=== PATIENT | female | born 1990 | race Caucasian/White ===

== ENCOUNTER 2016-04-14 02:30 | Inpatient (IN) | payer OTHER ==
[~2016-04-14] VITALS: Ht 149.9 cm; Wt 72.7 kg
[~2016-04-14 02:30] MED LIST: CALC600T5 PO; FERR256T PO; PREN-46 PO
[2016-04-14 02:38] VITALS: Ht 149.9 cm; Wt 72.7 kg
[2016-04-14 02:42] VITALS: BP 117/60; PULSE 88; RESP 18
[2016-04-14] MEDS ORDERED: INSU100V3 IJ ×2 (03:10)
[2016-04-14] MEDS ORDERED: NPH SQ (03:10)
[2016-04-14] MEDS ORDERED: NPH,100V SQ (03:10)
[2016-04-14] MEDS ORDERED: LACTATED RINGER'S 500 ML IV ONE (03:30)
[2016-04-14] MEDS: LACTATED RINGER'S 1,000 ML IV SCH ×7 (03:30→22:03)
[2016-04-14 04:13] LABS: ADD UMIC NO; URINE BILIRUBIN (Dip) NEGATIVE (NEGATIVE); URINE BLOOD (Dip) NEGATIVE (NEGATIVE); URINE COLOR YELLOW (YELLOW); URINE KETONES (Dip) 15 (NEGATIVE); URINE LEUKOCYTE ESTERASE (Dip) NEGATIVE (NEGATIVE); URINE NITRITE (Dip) NEGATIVE (NEGATIVE); URINE TOTAL PROTEIN (Dip) NEGATIVE (NEGATIVE); URINE UROBILINOGEN (Dip) 1.0 E.U./dL (0.1-1.0)
[2016-04-14] MEDS ORDERED: MISOPROSTOL 200 MCG TAB PR PRN ×2 (05:30→22:30)
[2016-04-14] MEDS ORDERED: METHYLERGONOVINE 0.2 MG INJ IM PRN ×2 (05:30→22:30)
[2016-04-14] MEDS ORDERED: CARBOPROST 250 MCG INJ IM PRN ×2 (05:30→22:30)
[2016-04-14] MEDS ORDERED: CEFAZOLIN 2 GM/50 ML (PMX) 50 ML IV SCH (05:30)
[2016-04-14] MEDS ORDERED: OXYTOCIN 30 UNITS/LR 500 ML IV PRN ×2 (05:30→22:30)
[2016-04-14 07:51] LABS: INR 0.96; PARTIAL THROMBOPLASTIN TIME 28.9 Sec (25.0-35.0); PROTIME 12.8 Sec (12.2-14.2)
[2016-04-14 07:59] LABS: BASOPHILS % 0.3 % (0.0-2.0); EOSINOPHILS # 0.1 10^3/ul (0.0-0.5); EOSINOPHILS % 0.9 % (0.0-7.0); HEMATOCRIT 36.4 % (37.0-47.0); HEMOGLOBIN 12.1 g/dl (12.0-16.0); LYMPHOCYTES # 1.8 10^3/ul (0.8-2.9); LYMPHOCYTES % 17.9 % (15.0-51.0); MEAN CORPUSCULAR HGB CONC 33.3 g/dl (32.0-37.0); MEAN CORPUSCULAR VOLUME 87.1 fl (82.0-101.0); MEAN PLATELET VOLUME 10.6 fl (7.4-10.4); MONOCYTE # 0.6 10^3/ul (0.3-0.9); MONOCYTES % 6.4 % (0.0-11.0); NEUTROPHIL # 7.4 10^3/ul (1.6-7.5); NEUTROPHILS % 74.5 % (39.0-77.0); PLATELET COUNT 193 10^3/UL (140-440); RED BLOOD COUNT 4.18 10^6/ul (4.20-5.40); RED CELL DISTRIBUTION WIDTH 14.6 % (11.5-14.5); UNCORRECTED WBC 9.9 10^3/ul (4.8-10.8); WHITE BLOOD COUNT 9.9 10^3/ul (4.8-10.8)
[2016-04-14 08:02] LABS: CONDITION 1; LH ANALYZER COMMENTS 1
[2016-04-14] MEDS ORDERED: ONDANSETRON 4 MG INJ ONE ×2 (17:55→18:29)
[2016-04-14] MEDS ORDERED: CITRIC ACID/NA CITRATE 30 ML CUP ONE (17:55)
[2016-04-14] MEDS ORDERED: EPHEDrine SULFATE 50 MG/5 ML SYG ONE (18:41)
[2016-04-14] MEDS ORDERED: morphine SULFATE/PF (10 MG/10 ML) INJ ONE (18:41)
[2016-04-14] MEDS ORDERED: PHENYLephrine (100 MCG/ML) 5ML SYG ONE ×2 (18:42→19:07)
[2016-04-14] MEDS ORDERED: FENTAnyl 50 MCG/ML VIAL ONE (18:54)
[2016-04-14] MEDS ORDERED: ONDANSETRON 4 MG INJ IV STA (19:19)
[2016-04-14] MEDS ORDERED: CITRIC ACID/NA CITRATE 30 ML CUP PO ONE (19:30)
--- NOTE | 2016-04-14 19:32 | HP ---
Date/Time of Note Date/Time of Note DATE: 04/14/16 TIME: 19:27 OB - History Hx of Present Free Text/Dictation admitted in early labor at 38 + weeks Chief Complaint: uterine contractions Last Menstrual Period: Jul 20, 2015 Estimated Due Date: Apr 25, 2016 : 2 Para: 1 Care: Good Care Ultrasounds: Normal mid trimester US Obstetrical Complications: Gestational Diabetes, Other (fatty degeneration of the liver ) Medical Complications: Other (previous C/S x 1) Past Family/Social History * Past Medical, Surgical, Family and Obstetric Histories reviewed from chart. Blood Type: A+ Rubella: immune RPR/VDRL: Negative GBS Status: Negative HBsAG: Negative OB Admission Exam Vital Signs Vital Signs Vital Signs Date Time Temp Pulse Resp B/P Pulse Ox O2 Delivery O2 Flow Rate FiO2 04/14/16 02:42 97.9 88 18 117/60 Room Air Physical Exam HEENT: WNL Heart: Rhythm Normal Lungs: Clear, Equal Abdomen: WNL Extremities: Normal Reflexes: Normal Cervical Dilatation: None Effacement: 0% Station: -3 Membranes: Intact Heart Rate: 150's Accelerations: Accelerations Present Decelerations: No Decelerations Varibility: Moderate Contractions on Admission: 6-10 Minutes Apart Date/Time Contractions Began: 04/14/2016 Frequency of Contractions: q7=9 min Duration: > 60 seconds Intensity: Mild Last 72 hourBlood Glucose Bedside Glucose - 72 Hours Test 04/14/16 07:27 04/14/16 11:30 04/14/16 15:24 Bedside Glucose 101mg/dL (70-220) 89mg/dL (70-220) 81mg/dL (70-220) Last 72 hours Lab Results CBC & BMP 04/14/16 03:35 OB Assessment/Plan Reason for admission: section Other Assessment: 38 + weeks gestation previous C/S x 1 desires sterilization early labor Other plan: repeat C/S + BTL TERESA RAMIREZ MD Apr 14, 2016 19:32
--- NOTE | 2016-04-14 19:35 | OPR ---
Operative Report Planned Procedure Procedure date Apr 14, 2016 Procedure(s) repeat C/S + BTL Performed by: TERESA RAMIREZ MD Assisting provider: LETTY GUTIERREZ MD Anesthesiologist: MARIELOS MATUTE Pre-procedure diagnosis term gestation previous C/S X 1 desires sterilization Anesthesia Type: spinal Procedure Description Under satisfactory anaesthesia a Pfannenstiel incision was made two fingerbreadth above and parallel to the symphysis of pubis around the previous scar and previous scar was removed Incision was extended laterally to the border of the Recti muscles on either sides. Incision was carried down with sharp and blunt dissection until fascia was reached. Anterior Recti muscle fascia was incised in mid portion and incision extended laterally to the border of skin incision. Fascia was mobilized from muscle superiorly and Recti muscles were from midline using sharp and blunt dissection. Peritoneum was visualized; Avoiding bowel and bladder it was incised . Incision was extended superiorly and inferiorly. Bladder blade was placed. Posterior peritoneum covering the lower segment of the uterus and lower segment of the uterus were incised.Low transverse uterine incision was made on lower segment of the uterus. Incision extended laterally to the border of Round Lig. on either sides and baby was delivered from OT. position . Amniotic fluid appeared clear. Cord blood was obtained and cord had 3 vessels . Placenta was delivered spontaneously and appeared intact and complete. Intrauterine cavity was rubbed with a laparotomy sponge. Uterine incision was closed in 2 layers using running stitches of No1 Monocryl. Hemostasis appeared secure. Ovaries and Fallopian tubes were within normal limits. Bilateral Tubal Ligation was performed by following procedure: R fallopian tube was raised in mid portion; 3 cm below the raised area single 0 Plain Gut stitch was placed. Another 0 Plain gut stitch was placed half a centimeter below the first and a knuckle of tube that was formed was incised above the first stitch. Same procedure was done on fallopian tube on the opposite side. Hemostasis appeared to be secure on ligated sites of either fallopian tubes. Announcing needle, lap sponge and instrument count to be correct abdomen was closed in layers as follows: Peritoneum and Recti muscles with running stitches of 20 Vicryl. Fascia with running stitch of No 1 PDS. Subcutaneous tissue with running stitches of 20 Chromic and skin was closed using lori. Patient tolerated the procedure well and was transferred to [facility] in good condition. Post-Procedure Post-procedure diagnosis S/P C/S + BTL Findings: Live Baby Specimen removed: Yes Specimen description segments of R and L fallopian tubes Complications: None Pt Condition post procedure: stable Disposition: PACU Physician Certification I, the undersigned physician, hereby certify that I have discussed the procedure described in this consent form with this patient (or the patient's legal industrial relations representative), including: * The risk and benefits of the procedure; * Any adverse reactions that may reasonably be expected to occur; * Any alternative efficacious methods of treatment which may be medically viable ; * The potential problems that may occur during recuperation; * Potential for blood transfusion and associated risks/benefits; and * Any research or economic interest I may have regarding this treatment. I further certify that the patient/legally responsible person was encouraged to ask question and that all questions were answered. TERESA RAMIREZ MD Apr 14, 2016 19:35
[2016-04-14] MEDS ORDERED: DIPHENHYDRAMINE 50 MG INJ IV PRN ×2 (20:00)
[2016-04-14] MEDS ORDERED: FENTAnyl 50 MCG/ML VIAL IV PRN ×2 (20:00)
[2016-04-14] MEDS ORDERED: NALOXONE (0.4 MG/ML) INJ IV PRN (20:00)
[2016-04-14] MEDS ORDERED: KETOROLAC 15 MG INJ IV ONE (20:00)
[2016-04-14] MEDS ORDERED: ONDANSETRON 4 MG INJ IV PRN ×2 (20:00)
[2016-04-14] MEDS ORDERED: KETOROLAC 30 MG INJ IV ONE (20:00)
[2016-04-14] MEDS ORDERED: MEPERIDINE 25 MG INJ IV PRN (20:00)
[2016-04-14] MEDS ORDERED: OXYCODONE/ACETAMINOPHEN (5/325) TAB PO PRN ×2 (20:00→22:30)
[2016-04-14] MEDS ORDERED: HYDROmorphONE (0.2 MG/ML) 10ML SYG IV PRN ×3 (20:00)
[2016-04-14] MEDS ORDERED: HYDROmorphONE 1 MG/ML SYG IV PRN ×2 (20:00)
[2016-04-14] MEDS: OXYTOCIN 30 UNITS/LR 500 ML IV SCH (21:14)
--- NOTE | 2016-04-14 21:54 | OPRPT ---
Intraop Record Datetime Report Generated by CPN: 04/14/2016 21:54 Datetime: 04/14/2016 21:30 Sequential Compression Device: Yes Datetime: 04/14/2016 21:15 Sequential Compression Device: Yes Datetime: 04/14/2016 21:00 Sequential Compression Device: Yes Datetime: 04/14/2016 20:45 Sequential Compression Device: Yes Datetime: 04/14/2016 20:30 Sequential Compression Device: Yes Datetime: 04/14/2016 20:15 Sequential Compression Device: Yes Datetime: 04/14/2016 20:00 Sequential Compression Device: Yes Datetime: 04/14/2016 19:45 Sequential Compression Device: Yes Datetime: 04/14/2016 19:35 Sequential Compression Device: Yes Datetime: 04/14/2016 11:00 OR Number: 2 TIMES/PROCEDURE Arrive OR: 04/14/2016 17:59 Depart OR: 04/14/2016 19:35 Anesthesia Start: 04/14/2016 17:59 Anesthesia End: 04/14/2016 19:41 Surgery Start: 04/14/2016 18:39 Surgery End: 04/14/2016 19:29 Preoperative Dx: REPEAT SECTION WITH BTL Surgical Procedure: Section with BTL Postoperative Dx: POST SECTION WITH BTL C/S Decision Time: 04/14/2016 10:30 C/S Decision to Incision (min): 489 Uterine Incision: 04/14/2016 18:44 PERSONNEL Surgeon: Chichi Walls Doctor Of Nurse Anesthesia Practice Relief Time: 1914 Scrub: Jordan Fortune Scrub: Grace Scrub Relief Times: 1914 Anesthesia Care Provider: Richard Kwon Care: See Delivery Summary for Care Providers Anesthesia Type: Spinal ASA Level: I RISK FOR INJURY Mode of Arrival: Ambulate Procedure Time Out: Correct Patient Identity; Correct Side and Site are Marked (if applicable); Acc urate Procedure Consent Form; Agreement on Procedure to be Done; Correct Patient Position; Relevant Images and Results are Properly Labeled and Displayed; Addressed Need to Administer Antibiotics or F luids for Irrigation; Safety Precautions Based on Patient History or Medication Use; Allergies Revie wed Preoperative Information: Preoperative Checklist Reviewed; Allergies Reviewed; NPO Status Verified RISK FOR ANXIETY/KNOW DEFICIT Emotional Status: Calm/Relaxed Interventions: Provided Education Based on Age and Identified Needs; Communicated Patient Concerns to Appropriate Members of the Health Care Team; Explained Sequence of Events and Perioperative Routi ne; Evaluated Response to Instructions RISK FOR PAIN Pain Teaching: Instructed on Pain Scale PREOPERATIVE OUTCOMES Preoperative Outcomes: Verbalizes/Indicates Decreased Anxiety, Ability to [place], Understanding of Pr ocedure and Sequence of Events. Questions Answered; Demonstrates Adequate Pain Management; Verbaliz es Comfort Related to Transfer/Transport RISK FOR INFECTION Skin Pre-Operative Site: Intact Clip: Clip Clip Location: CLOSED LOWER ABDOMEN Prep: Yes Prep By: DANIAL BEAR Prep Solution: Povidone Iodine Catheter: Bowman Catheter Size: 16 Catheter Inserted By: DANIAL BEAR Surgical Wound Class: I-Clean Drains : Intact Dressing Type: Transparent Dressing Other Dressing Types: TELFA, ABD, GAUZE, AND PRESSURE TAPE Risk for Impaired Skin Integrity Position in OR: Supine Bony Prominences Protection: Arms Tucked/Padded; Elbows Positioning Devices: Wedge Risk for Hypothermia Warming Interventions: Warm [place](s); Warm Irrigation Risk for Injury Safety Straps Applied: Legs Sequential Compression Device: Yes Electrosurgical Unit: Yes Electrosurgical Unit Number: [id number] Bipolar Number: [id number] Ground Pad Location: Right Lateral Thigh Coag Number: 60 Cut Number: 60 Estimated Blood Loss- OR (ml): 700 1st Count Sponge Count: Correct Needle Count: Correct Blade Count: Correct Instrument Count: Correct 2nd Count Sponge Count: Correct Needle Count: Correct Blade Count: Correct Instrument Count: Not Done 3rd Count Sponge Count: Correct Needle Count: Correct Blade Count: Correct Instrument Count: Not Done Final Count Sponge Count 4: Correct Needle Count 4: Correct Blade Count 4: Correct Instrument Count 4: Correct Surgeon Acknowledged Count: Yes Final Count Resolution: Count Correct Intraoperative Data Equipment: Non-Invasive Blood Pressure; Pulse Oximeter; EKG Blood Products Given: N/A Implants/Prosthesis Implants/Prosthesis: N/A Grafts: N/A Irrigation Irrigants: NACL; LR Irrigation Amount: 2L EACH Specimens Specimens: Yes Specimen Type: Fallopian Tubes Disposition: LEFT Specimen Type: Fallopian Tubes Disposition: RIGHT Cultures Cultures: N/A X-Ray X-Ray Taken: Yes Postoperative Skin: Warm; Dry Pain Scale: 0 Condition: Awake; Alert Temperature: 97.7 Operative Outcomes: Patient's Surgery Performed Using Aseptic Technique and in a Manner to Prevent Cross-Contamination; Skin Remains Smooth, Intact, Non-reddened, Non-irritated, Free of Bruising; Cor e Body Temperature Remains in Expected Range Other Operative Outcomes: GROUNDING PAD SITE REMAINS INTACT Transfer To: L_D Other: RECOVERY ROOM Datetime: 04/14/2016 02:38 Drug Allergies/Reactions: No Known Allergy (04/14/2016) Datetime: 02/07/2016 00:34 Drug Allergies/Reactions: No Known Allergy (05/11/2013) Datetime: 02/04/2016 20:36 Food Allergies/Reactions: NO
--- NOTE | 2016-04-14 21:54 | DELSUM ---
Delivery Summary A-C Datetime Report Generated by CPN: 04/14/2016 21:54 DELIVERY PERSONNEL Loading Checker: Mariann, Otilia MATERNAL INFORMATION Delivery Anesthesia: Spinal Medications in Delivery: SEE ANESTHESIOLIST NOTES Placenta Cultured: No Maternal Complications: Other Other Maternal Complications: REPEAT LABOR SUMMARY EDC: 04/25/2016 00:00 No. Babies in Womb: 1 Attempted: No Labor Anesthesia: None LABOR INFORMATION Reason for Induction: Not Applicable Oxytocin: N/A Group B Beta Strep: Negative Antibiotics # of Doses: ANCEF 2GM Antibiotics Time of Last Dose: 1818 Steroids Given: None Reason Steroids Not Administered: Not Applicable MEMBRANES Membranes Rupture Method: Artificial Rupture of Membranes: 04/14/2016 18:46 Length of Rupture (hr): 0.00 Amniotic Fluid Color: Clear Amniotic Fluid Amount: Moderate Amniotic Fluid Odor: Normal STAGES OF LABOR Stage 3 hr: 0 Stage 3 min: 1 CSECTION DELIVERY Primary Indication: Repeat Elective Secondary Indication: Repeat Elective CSection Urgency: Elective CSection Incidence: Repeat Labor: N/A Elective: N/A CSection Incision: Lower Uterine Transverse Sterilization Procedure: Ye BABY A INFORMATION Delivery Date/Time: 04/14/2016 18:46 Method of Delivery: Born in Route : No : N/A Forceps: N/A Vacuum Extraction: N/A Shoulder Dystocia : N/A SHOULDER DYSTOCIA BABY A Infant Delivery Date/Time: 04/14/2016 18:46 PRESENTATION/POSITION BABY A Presentation: Cephalic Cephalic Presentation: Vertex Vertex Position: Left Occipital Posterior Breech Presentation: N/A PLACENTA INFORMATION BABY A Placenta Delivery Time : 04/14/2016 18:47 Placenta Method of Delivery: Manual Removal Placenta Status: Retained SCORES BABY A Heart Rate 1 min: >100 bpm Resp Effort 1 min: Good Cry Reflex Irritability 1 min: Cough/Sneeze/Pulls Away Muscle Tone 1 min: Active Motion Color 1 min: Blue/Pale Resuscitation Effort 1 min: Tactile Stimulation SCORE 1 MIN: 8 Heart Rate 5 min: >100 bpm Resp Effort 5 min: Good Cry Reflex Irritability 5 min: Cough/Sneeze/Pulls Away Muscle Tone 5 min: Active Motion Color 5 min: Body [place], Extremit Blue Resuscitation Effort 5 min: Tactile Stimulation SCORE 5 MIN: 9 INFORMATION BABY A Gestational Age at Delivery: 38.3 Gestational Status: Early Term- 37- 38.6 Weeks Infant Outcome : Liveborn Condition : Stable Sex: Male IDENTIFICATION/MEDS BABY A ID Band Number: [id number] ID Band Location: Right Leg; Left Arm Sensor Applied: Yes Sensor Number: [id number] Sensor Location : Cord Clamp Vitamin K Given : Not Given Erythromycin Given: Not Given WEIGHT/LENGTH BABY A Birthweight (gm): 3500 Weight (lb): 7 Weight (oz): 11 Infant Length (in): 19.00 Infant Length (cm): 48.26 CORD INFORMATION BABY A No. Cord Vessels: 3 Nuchal Cord : N/A Cord Blood Taken: Yes Infant Suction: Mouth; Nose ASSESSMENT BABY A Infant Complications: None Physical Findings at Delivery: Within Normal Limits Respirations: Appears Normal Reuse Technician/ALS Called : No Infant Care By: CUONG Alegria RN Transferred To: Remains with Mother
--- NOTE | 2016-04-14 21:54 | DELSUM ---
Delivery Summary A-C Datetime Report Generated by CPN: 04/14/2016 21:53 DELIVERY PERSONNEL Insulation Mechanic: Mariann, Otilia MATERNAL INFORMATION Delivery Anesthesia: Spinal Medications in Delivery: SEE ANESTHESIOLIST NOTES Placenta Cultured: No Maternal Complications: Other Other Maternal Complications: REPEAT LABOR SUMMARY EDC: 04/25/2016 00:00 No. Babies in Womb: 1 Attempted: No Labor Anesthesia: None LABOR INFORMATION Reason for Induction: Not Applicable Oxytocin: N/A Group B Beta Strep: Negative Antibiotics # of Doses: ANCEF 2GM Antibiotics Time of Last Dose: 1818 Steroids Given: None Reason Steroids Not Administered: Not Applicable MEMBRANES Membranes Rupture Method: Artificial Rupture of Membranes: 04/14/2016 18:46 Length of Rupture (hr): 0.00 Amniotic Fluid Color: Clear Amniotic Fluid Amount: Moderate Amniotic Fluid Odor: Normal STAGES OF LABOR Stage 3 hr: 0 Stage 3 min: 1 CSECTION DELIVERY Primary Indication: Repeat Elective Secondary Indication: Repeat Elective CSection Urgency: Elective CSection Incidence: Repeat Labor: N/A Elective: N/A CSection Incision: Lower Uterine Transverse Sterilization Procedure: Ye BABY A INFORMATION Delivery Date/Time: 04/14/2016 18:46 Method of Delivery: Born in Route : No : N/A Forceps: N/A Vacuum Extraction: N/A Shoulder Dystocia : N/A SHOULDER DYSTOCIA BABY A Infant Delivery Date/Time: 04/14/2016 18:46 PRESENTATION/POSITION BABY A Presentation: Cephalic Cephalic Presentation: Vertex Vertex Position: Left Occipital Posterior Breech Presentation: N/A PLACENTA INFORMATION BABY A Placenta Delivery Time : 04/14/2016 18:47 Placenta Method of Delivery: Manual Removal Placenta Status: Retained SCORES BABY A Heart Rate 1 min: >100 bpm Resp Effort 1 min: Good Cry Reflex Irritability 1 min: Cough/Sneeze/Pulls Away Muscle Tone 1 min: Active Motion Color 1 min: Blue/Pale Resuscitation Effort 1 min: Tactile Stimulation SCORE 1 MIN: 8 Heart Rate 5 min: >100 bpm Resp Effort 5 min: Good Cry Reflex Irritability 5 min: Cough/Sneeze/Pulls Away Muscle Tone 5 min: Active Motion Color 5 min: Body [place], Extremit Blue Resuscitation Effort 5 min: Tactile Stimulation SCORE 5 MIN: 9 INFORMATION BABY A Gestational Age at Delivery: 38.3 Gestational Status: Early Term- 37- 38.6 Weeks Infant Outcome : Liveborn Condition : Stable Sex: Male IDENTIFICATION/MEDS BABY A ID Band Number: [id number] ID Band Location: Right Leg; Left Arm Sensor Applied: Yes Sensor Number: [id number] Sensor Location : Cord Clamp Vitamin K Given : Not Given Erythromycin Given: Not Given WEIGHT/LENGTH BABY A Birthweight (gm): 3500 Weight (lb): 7 Weight (oz): 11 Infant Length (in): 19.00 Infant Length (cm): 48.26 CORD INFORMATION BABY A No. Cord Vessels: 3 Nuchal Cord : N/A Cord Blood Taken: Yes Infant Suction: Mouth; Nose ASSESSMENT BABY A Infant Complications: None Physical Findings at Delivery: Within Normal Limits Respirations: Appears Normal Tank Washer/ALS Called : No Infant Care By: CUONG Alegria RN Transferred To: Remains with Mother
[2016-04-14 22:05] VITALS: BP 110/55; PULSE 95; RESP 20
[2016-04-14] MEDS ORDERED: GLUCAGON 1 MG INJ IM PRN (22:30)
[2016-04-14] MEDS ORDERED: metFORMIN (XR) 500 MG TAB PO SCH (22:30)
[2016-04-14] MEDS ORDERED: LANOLIN 7 GM TUBE TOP PRN (22:30)
[2016-04-14] MEDS ORDERED: NA PHOSPHATE/BIPHOS 133 ML ENEMA PR PRN (22:30)
[2016-04-14] MEDS: SENNA/DOCUSATE NA (8.6MG/50MG) TAB PO SCH (22:30)
[2016-04-14] MEDS ORDERED: GLUCOSE GEL 15 GRAM TUBE BUCCAL PRN (22:30)
[2016-04-14] MEDS ORDERED: DEXTROSE 50% 50 ML SYRINGE IV PRN ×2 (22:30)
[2016-04-14] MEDS ORDERED: GLUCOSE GEL 15 GRAM TUBE PO PRN ×2 (22:30)
[2016-04-15] VITALS (7 sets, daily range): BP systolic 94–115; BP diastolic 52–64; PULSE 82–115; RESP 12–18
[2016-04-15] MEDS: CLINDAMYCIN 300 MG CAP PO SCH ×6 (00:34→23:44)
[2016-04-15] MEDS: OXYTOCIN 30 UNITS/LR 500 ML IV SCH (02:14)
[2016-04-15] MEDS: CEFAZOLIN 2 GM/50 ML (PMX) 50 ML IV SCH ×4 (02:42→17:55)
[2016-04-15] MEDS: KETOROLAC 30 MG INJ IV PRN ×3 (05:00→16:35)
--- NOTE | 2016-04-15 06:45 | TRIAGE ---
OB Triage Datetime Report Generated by CPN: 04/15/2016 06:44 Datetime: 04/14/2016 21:35 Stage of : Recovery Datetime: 04/14/2016 21:30 Stage of : Recovery Pain Assessment Pain Scale: 2 Pain Presence: Constant Pain Type: Ache Pain Location: INCISION SITE Pain Goal: 0 Pain Relief Measures: Comfort Measures Datetime: 04/14/2016 21:15 Stage of : Recovery Pain Assessment Pain Scale: 2 Pain Presence: Constant Pain Type: Ache Pain Location: INCISION SITE Pain Goal: 0 Pain Relief Measures: Comfort Measures Datetime: 04/14/2016 21:00 Stage of : Recovery Pain Assessment Pain Scale: 2 Pain Presence: Constant Pain Type: Ache Pain Location: INCISION SITE Pain Goal: 0 Pain Relief Measures: Comfort Measures Pain Assessment Comments: PT REFUSES ADDITIONAL PAIN RELIEF Datetime: 04/14/2016 20:45 Stage of : Recovery Datetime: 04/14/2016 20:30 Stage of : Recovery Datetime: 04/14/2016 20:22 Stage of : Recovery Pain Assessment Pain Scale: 5 Pain Presence: Constant Pain Type: Ache Pain Location: Abdomen (Annotations: INCISION SITE) Pain Goal: 0 Pain Relief Measures: Pain Medication Given; Comfort Measures Datetime: 04/14/2016 20:15 Stage of : Recovery Pain Assessment Pain Scale: 4 Pain Presence: Constant Pain Type: Ache Pain Location: Abdomen (Annotations: INCISION SITE) Pain Goal: 0 Pain Relief Measures: Comfort Measures Datetime: 04/14/2016 20:00 Stage of : Recovery Pain Assessment Pain Scale: 0 Pain Presence: None/Denies Pain Type: N/A Datetime: 04/14/2016 19:45 Stage of : Recovery Pain Assessment Pain Scale: 0 Pain Presence: None/Denies Pain Type: N/A Datetime: 04/14/2016 19:40 Stage of : Recovery Datetime: 04/14/2016 19:35 Stage of : Recovery Temperature Route: Oral Pain Assessment Pain Scale: 0 Pain Presence: None/Denies Pain Type: N/A Datetime: 04/14/2016 16:00 Labor Evaluation Frequency: IRREGULAR Monitor Mode: External Duration (sec)2399: 50-60 Quality: Moderate Pattern: Normal: <= 5 Contractions in 10 Minutes Resting Tone [place]: Relaxed Heart Rate FHR Baseline Rate: 150 Monitor Mode: External US FHR Baseline Changes: No Baseline Change Variability: Moderate 6-25 bpm Accelerations: 15X15 Decelerations: None Category: Category I Datetime: 04/14/2016 15:25 Bedside Blood Glucose: 81 Datetime: 04/14/2016 14:43 Labor Evaluation Frequency: 5-9 Monitor Mode: External Duration (sec)2399: 40-50 Quality: Moderate Pattern: Normal: <= 5 Contractions in 10 Minutes Resting Tone [place]: Relaxed Heart Rate FHR Baseline Rate: 145 Monitor Mode: External US FHR Baseline Changes: No Baseline Change Variability: Moderate 6-25 bpm Accelerations: 15X15 Decelerations: None Category: Category I Datetime: 04/14/2016 14:00 Labor Evaluation Frequency: 7-9 Monitor Mode: External Duration (sec)2399: 50-60 Quality: Moderate Pattern: Normal: <= 5 Contractions in 10 Minutes Resting Tone [place]: Relaxed Heart Rate FHR Baseline Rate: 145 Monitor Mode: External US FHR Baseline Changes: No Baseline Change Variability: Moderate 6-25 bpm Accelerations: 15X15 Decelerations: None Category: Category I Datetime: 04/14/2016 13:00 Labor Evaluation Frequency: 5-9 Monitor Mode: External Duration (sec)2399: 50-60 Quality: Moderate Pattern: Normal: <= 5 Contractions in 10 Minutes Resting Tone [place]: Relaxed Heart Rate FHR Baseline Rate: 145 Monitor Mode: External US FHR Baseline Changes: No Baseline Change Variability: Moderate 6-25 bpm Accelerations: 15X15 Decelerations: None Category: Category I Datetime: 04/14/2016 12:00 Labor Evaluation Frequency: 7-8 Monitor Mode: External Duration (sec)2399: 40-50 Quality: Moderate Pattern: Normal: <= 5 Contractions in 10 Minutes Resting Tone [place]: Relaxed Heart Rate FHR Baseline Rate: 140 Monitor Mode: External US FHR Baseline Changes: No Baseline Change Variability: Moderate 6-25 bpm Accelerations: 15X15 Decelerations: None Category: Category I Datetime: 04/14/2016 11:31 Bedside Blood Glucose: 89 Datetime: 04/14/2016 11:00 Labor Evaluation Frequency: 5-8 Monitor Mode: External Duration (sec)2399: 40-50 Quality: Moderate Pattern: Normal: <= 5 Contractions in 10 Minutes Resting Tone [place]: Relaxed Heart Rate FHR Baseline Rate: 140 Monitor Mode: External US FHR Baseline Changes: No Baseline Change Variability: Moderate 6-25 bpm Accelerations: 15X15 Decelerations: None Category: Category I Datetime: 04/14/2016 10:00 Labor Evaluation Frequency: IRREGULAR Monitor Mode: External Duration (sec)2399: 50-60 Quality: Moderate Pattern: Normal: <= 5 Contractions in 10 Minutes Resting Tone [place]: Relaxed Heart Rate FHR Baseline Rate: 145 Monitor Mode: External US FHR Baseline Changes: No Baseline Change Variability: Moderate 6-25 bpm Accelerations: 15X15 Decelerations: None Category: Category I Datetime: 04/14/2016 09:00 Labor Evaluation Frequency: 5-8 Monitor Mode: External Duration (sec)2399: 40-60 Quality: Moderate Pattern: Normal: <= 5 Contractions in 10 Minutes Resting Tone [place]: Relaxed Heart Rate FHR Baseline Rate: 140 Monitor Mode: External US FHR Baseline Changes: No Baseline Change Variability: Moderate 6-25 bpm Accelerations: 15X15 Decelerations: None Category: Category I Datetime: 04/14/2016 08:00 Labor Evaluation Frequency: IRREGULAR Monitor Mode: External Duration (sec)2399: 40-60 Quality: Moderate Pattern: Normal: <= 5 Contractions in 10 Minutes Resting Tone [place]: Relaxed Heart Rate FHR Baseline Rate: 140 Monitor Mode: External US FHR Baseline Changes: No Baseline Change Variability: Moderate 6-25 bpm Accelerations: 15X15 Decelerations: None Category: Category I Datetime: 04/14/2016 07:28 Assessment Type: Ongoing Assessment Maternal Assessment Level of Consciousness: Fully Conscious DTR's/Clonus: DTRs 2+; No Clonus Headache: Denies Blurred Vision: No Respiratory Effort: Unlabored; Regular Rhythm; Equal Expansion Breath Sounds, Left: Clear and Equal Breath Sounds, Right: Clear and Equal Nausea/Vomiting: Denies RUQ Epigastric Pain: Denies Lower Extremities Edema: None Upper Extremities Edema: None Facial Edema: None Bedside Blood Glucose: 101 Fall Risk Assessment History of Falling: (0) No Secondary Diagnosis: (0) No Ambulatory Aid: (0) Bedrest/Nurse Assist IV Therapy: (20) Yes Gait: (0) Normal/Bedrest/Immobile Mental Status: (0) Oriented to Own Ability Fall Score: 20 Fall Risk Score Definition: No Risk: No action required Datetime: 04/14/2016 07:26 Pain Assessment Pain Scale: 2 Pain Presence: Intermittent Pain Type: Contraction Pain Location: Abdomen; Back Pain Goal: 2 Datetime: 04/14/2016 07:00 Labor Evaluation Frequency: Irreguloar Monitor Mode: External Duration (sec)2399: 60-80 Quality: Mild Pattern: Normal: <= 5 Contractions in 10 Minutes Resting Tone [place]: Relaxed Heart Rate FHR Baseline Rate: 145 Monitor Mode: External US FHR Baseline Changes: No Baseline Change Variability: Moderate 6-25 bpm Accelerations: 15X15 Decelerations: None Category: Category I Datetime: 04/14/2016 06:15 Temperature Route: Oral Pain Assessment Pain Scale: 8 Pain Presence: Intermittent Pain Type: Contraction Pain Location: Back Pain Relief Measures: Comfort Measures Datetime: 04/14/2016 06:12 Time of Arrival: 04/14/2016 06:12 EGA: 38.3 Arrived By: Ambulatory Arrived From: OB TRIAGE Datetime: 04/14/2016 06:10 Stage of : Labor Assessment Type: Admission Assessment Maternal Assessment Level of Consciousness: Fully Conscious DTR's/Clonus: DTRs 2+; No Clonus Headache: Denies Blurred Vision: No Respiratory Effort: Unlabored; Regular Rhythm; Equal Expansion Breath Sounds, Left: Clear and Equal Breath Sounds, Right: Clear and Equal Nausea/Vomiting: Denies RUQ Epigastric Pain: Denies Lower Extremities Edema: None Degree: None Upper Extremities Edema: None Degree: None Facial Edema: None Fall Risk Assessment History of Falling: (0) No Secondary Diagnosis: (0) No Ambulatory Aid: (0) Bedrest/Nurse Assist IV Therapy: (0) No Gait: (0) Normal/Bedrest/Immobile Mental Status: (0) Oriented to Own Ability Fall Score: 0 Fall Risk Score Definition: No Risk: No action required Datetime: 04/14/2016 06:00 Stage of : OB Triage Labor Evaluation Frequency: irreg Monitor Mode: External Duration (sec)2399: 50-80 Quality: Mild Pattern: Normal: <= 5 Contractions in 10 Minutes Resting Tone [place]: Relaxed Heart Rate FHR Baseline Rate: 145 Monitor Mode: External US Variability: Moderate 6-25 bpm Accelerations: 15X15 Decelerations: None Category: Category I Pain Assessment Pain Scale: 6 Pain Presence: Intermittent Pain Type: Cramping Pain Location: Back Pain Goal: 5 Pain Relief Measures: Comfort Measures Datetime: 04/14/2016 05:00 Stage of : OB Triage Labor Evaluation Frequency: irreg Monitor Mode: External Duration (sec)2399: 50-80 Quality: Mild Pattern: Normal: <= 5 Contractions in 10 Minutes Resting Tone [place]: Relaxed Heart Rate FHR Baseline Rate: 145 Monitor Mode: External US Variability: Moderate 6-25 bpm Accelerations: 15X15 Decelerations: None Category: Category I Pain Assessment Pain Scale: 6 Pain Presence: Intermittent Pain Type: Cramping Pain Location: Back Pain Goal: 5 Pain Relief Measures: Comfort Measures Datetime: 04/14/2016 04:10 Stage of : OB Triage Labor Evaluation Frequency: 7-9 Monitor Mode: External Duration (sec)2399: 60-100 Quality: Mild Pattern: Normal: <= 5 Contractions in 10 Minutes Resting Tone [place]: Relaxed Heart Rate FHR Baseline Rate: 150 Monitor Mode: External US Variability: Moderate 6-25 bpm Accelerations: 15X15 Decelerations: None Category: Category I Pain Assessment Pain Scale: 8 Pain Presence: Intermittent Pain Type: Cramping Pain Location: Back Pain Goal: 5 Pain Relief Measures: Comfort Measures Datetime: 04/14/2016 03:22 Stage of : OB Triage Datetime: 04/14/2016 03:15 Stage of : OB Triage Labor Evaluation Frequency: 7-9 Monitor Mode: External Duration (sec)2399: 60-100 Quality: Mild Pattern: Normal: <= 5 Contractions in 10 Minutes Resting Tone [place]: Relaxed Heart Rate FHR Baseline Rate: 150 Monitor Mode: External US Variability: Moderate 6-25 bpm Accelerations: 15X15 Decelerations: None Category: Category I Pain Assessment Pain Scale: 8 Pain Presence: Intermittent Pain Type: Cramping Pain Location: Back Pain Goal: 5 Pain Relief Measures: Comfort Measures Datetime: 04/14/2016 03:11 Vaginal Exam Dilatation (cms): 0.0 Effacement (%): 0 Station: -3 Exam By: CARIN Vaginal Bleeding: None Cervix, Consistency: Moderate Cervix, Position: Posterior Datetime: 04/14/2016 02:43 Time of Arrival: 04/14/2016 02:26 EGA: 38.3 Arrived By: Wheelchair Arrived From: Home Chief Complaint: w/ hx c/s x 1 w/ c/o ucs Movement: Present Contractions: Regular Time Contractions Began: 04/13/2016 17:00 Rupture of Membranes: Denies Vaginal Bleeding: None Vaginal Discharge: Denies Recent Sexual Intercouse: Denies Abdominal Trauma: Not Applicable Patient Complaints: Contractions Additional Patient Complaints: A2DM, ON INSULIN, REGULAR AND NPH TWICW DAILY, PREV C/S FAILURE TO DESCENT, PT. WAS COMPLETE AND PUSHING, DID NOT MAKE IT VAGINALLY Time Provider Notified: 04/14/2016 03:22 Provider Notified: DOUG Initial Plan: EFM Datetime: 04/14/2016 02:40 Maternal Assessment Level of Consciousness: Fully Conscious Headache: Denies Blurred Vision: No RUQ Epigastric Pain: Denies Facial Edema: None Labor Evaluation Frequency: placed Monitor Mode: External Resting Tone [place]: Relaxed Monitor Mode: External US Comments: FHT 150 Pain Assessment Pain Scale: 10 Pain Presence: Intermittent Pain Type: Contraction Pain Location: Back Datetime: 03/01/2016 09:34 Labor Evaluation Frequency: X2 Monitor Mode: External Duration (sec)2399: 80-90 Quality: Mild Pattern: Normal: <= 5 Contractions in 10 Minutes Resting Tone [place]: Relaxed Heart Rate FHR Baseline Rate: 140 Monitor Mode: External US Variability: Moderate 6-25 bpm Accelerations: 15X15 Decelerations: None Category: Category I Datetime: 02/06/2016 16:43 Temperature Route: Oral Datetime: 02/06/2016 15:19 Stage of : Antepartum Datetime: 02/06/2016 14:41 Bedside Blood Glucose: 94 (Annotations: 2 PPBS lunch) Datetime: 02/06/2016 12:05 Temperature Route: Oral Datetime: 02/06/2016 11:04 Bedside Blood Glucose: 82 (Annotations: 2 hour post breakfast) Datetime: 02/06/2016 10:47 Stage of : Antepartum Datetime: 02/06/2016 10:45 Stage of : Antepartum Datetime: 02/06/2016 08:56 Stage of : Antepartum Datetime: 02/06/2016 08:40 Headache: Denies Labor Evaluation Frequency: 0 Monitor Mode: External Monitor Mode: External US FHR Baseline Changes: No Baseline Change Variability: Moderate 6-25 bpm Decelerations: Variable Datetime: 02/06/2016 08:24 Bedside Blood Glucose: 89 (Annotations: fasting) Datetime: 02/06/2016 08:00 Assessment Type: Ongoing Assessment Maternal Assessment Level of Consciousness: Fully Conscious DTR's/Clonus: DTRs 2+; No Clonus Headache: Denies Blurred Vision: No Respiratory Effort: Unlabored; Regular Rhythm; Equal Expansion Breath Sounds, Left: Clear and Equal Breath Sounds, Right: Clear and Equal Nausea/Vomiting: Denies RUQ Epigastric Pain: Denies Lower Extremities Edema: None Degree: None Upper Extremities Edema: None Degree: None Facial Edema: None Fall Risk Assessment History of Falling: (0) No Secondary Diagnosis: (0) No Ambulatory Aid: (0) Bedrest/Nurse Assist IV Therapy: (0) No Gait: (0) Normal/Bedrest/Immobile Mental Status: (0) Oriented to Own Ability Fall Score: 0 Fall Risk Score Definition: No Risk: No action required Datetime: 02/06/2016 07:59 Contraction Comments: NST STARTED Comments: NST STARTED Datetime: 02/06/2016 07:57 Temperature Route: Oral Datetime: 02/06/2016 06:54 Stage of : Antepartum Datetime: 02/06/2016 06:41 Stage of : Antepartum Datetime: 02/06/2016 06:01 Stage of : Antepartum Temperature Route: Oral Pain Presence: None/Denies Datetime: 02/05/2016 21:23 Labor Evaluation Frequency: 0 Monitor Mode: External Duration (sec)2399: DENIES Resting Tone [place]: Relaxed Heart Rate FHR Baseline Rate: 145 Monitor Mode: External US Variability: Moderate 6-25 bpm Accelerations: 10X10 Decelerations: None Category: Category I Comments: NST DONE REACTIVE STRIP. Pain Presence: None/Denies Datetime: 02/05/2016 20:30 Monitor Mode: External Contraction Comments: PLACED NST STARTED. Monitor Mode: External US Comments: PLACED NST STARTED. Datetime: 02/05/2016 19:40 Stage of : Antepartum Assessment Type: Ongoing Assessment Maternal Assessment Level of Consciousness: Fully Conscious DTR's/Clonus: DTRs 2+; No Clonus Headache: Denies Blurred Vision: No Respiratory Effort: Unlabored; Regular Rhythm; Equal Expansion Breath Sounds, Left: Clear and Equal Breath Sounds, Right: Clear and Equal Nausea/Vomiting: Denies RUQ Epigastric Pain: Denies Lower Extremities Edema: None Degree: None Upper Extremities Edema: None Degree: None Facial Edema: None Temperature Route: Oral Fall Risk Assessment History of Falling: (0) No Secondary Diagnosis: (0) No Ambulatory Aid: (0) Bedrest/Nurse Assist IV Therapy: (0) No Gait: (0) Normal/Bedrest/Immobile Mental Status: (0) Oriented to Own Ability Fall Score: 0 Fall Risk Score Definition: No Risk: No action required Pain Presence: None/Denies Datetime: 02/05/2016 18:46 Stage of : Antepartum Datetime: 02/05/2016 16:17 Temperature Route: Oral Monitor Mode: External Contraction Comments: denies feeling contractions Pain Presence: None/Denies Pain Type: N/A Pain Goal: 0 Datetime: 02/05/2016 12:55 Stage of : Antepartum Datetime: 02/05/2016 08:44 Stage of : Antepartum Labor Evaluation Frequency: 0 Monitor Mode: External Resting Tone [place]: Relaxed Heart Rate FHR Baseline Rate: 135 Monitor Mode: External US FHR Baseline Changes: No Baseline Change Variability: Moderate 6-25 bpm Accelerations: 15X15 Decelerations: None Pain Presence: None/Denies Pain Goal: 0 Datetime: 02/05/2016 08:00 Bedside Blood Glucose: 92 (Annotations: FBS) Datetime: 02/05/2016 07:47 Stage of : Antepartum Temperature Route: Oral Datetime: 02/05/2016 07:45 Assessment Type: Admission Assessment Maternal Assessment Level of Consciousness: Fully Conscious DTR's/Clonus: DTRs 2+; No Clonus Headache: Denies Blurred Vision: No Respiratory Effort: Unlabored; Regular Rhythm; Equal Expansion Breath Sounds, Left: Clear and Equal Breath Sounds, Right: Clear and Equal Nausea/Vomiting: Denies RUQ Epigastric Pain: Denies Lower Extremities Edema: None Degree: None Upper Extremities Edema: None Degree: None Facial Edema: None Fall Risk Assessment History of Falling: (0) No Secondary Diagnosis: (0) No Ambulatory Aid: (0) Bedrest/Nurse Assist IV Therapy: (0) No Gait: (0) Normal/Bedrest/Immobile Mental Status: (0) Oriented to Own Ability Fall Score: 0 Fall Risk Score Definition: No Risk: No action required Datetime: 02/05/2016 07:40 Stage of : Antepartum Monitor Mode: External Monitor Mode: External US Comments: NST STARTED Pain Goal: 0 Datetime: 02/05/2016 04:50 Stage of : Antepartum Temperature Route: Oral Membrane Status: Intact Datetime: 02/04/2016 22:51 Labor Evaluation Frequency: 0 Monitor Mode: External Resting Tone [place]: Relaxed Heart Rate FHR Baseline Rate: 150 Monitor Mode: External US Variability: Moderate 6-25 bpm Accelerations: 15X15 Decelerations: None Category: Category I Comments: REACTIVE NST, EFM REMOVED Datetime: 02/04/2016 22:05 Monitor Mode: External Contraction Comments: PLACED NST STARTED. Monitor Mode: External US Comments: PLACED,NST STARTED Datetime: 02/04/2016 20:36 Membranes Ruptured Date/Time: 04/14/2016 18:46 Membranes Rupture Method: Artificial Amniotic Fluid Color: Clear Amniotic Fluid Amount: Moderate Amniotic Fluid Odor: Normal Presentation 'A': Cephalic Datetime: 02/04/2016 20:22 Bedside Blood Glucose: 98 (Annotations: SANDWICH AND MILK PROVIDED,WILL CHECK SUGAR IN 2 HRS.) Datetime: 02/04/2016 19:45 Stage of : Antepartum Assessment Type: Admission Assessment Maternal Assessment Level of Consciousness: Fully Conscious DTR's/Clonus: DTRs 2+; No Clonus Headache: Denies Blurred Vision: No Respiratory Effort: Unlabored; Regular Rhythm; Equal Expansion Breath Sounds, Left: Clear and Equal Breath Sounds, Right: Clear and Equal Nausea/Vomiting: Denies RUQ Epigastric Pain: Denies Lower Extremities Edema: None Degree: None Upper Extremities Edema: None Degree: None Facial Edema: None Temperature Route: Oral Fall Risk Assessment History of Falling: (0) No Secondary Diagnosis: (0) No Ambulatory Aid: (0) Bedrest/Nurse Assist IV Therapy: (0) No Gait: (0) Normal/Bedrest/Immobile Mental Status: (0) Oriented to Own Ability Fall Score: 0 Fall Risk Score Definition: No Risk: No action required Monitor Mode: External (Annotations: placed) Monitor Mode: External US (Annotations: placed)
[2016-04-15] MEDS: LACTATED RINGER'S 1,000 ML IV SCH ×2 (06:50→15:18)
[2016-04-15] MEDS: ACCUCHECK XX SCH ×5 (07:30→21:05)
[2016-04-15 08:02] LABS: BASOPHIL # 0.1 10^3/ul (0.0-0.1); BASOPHILS % 0.6 % (0.0-2.0); EOSINOPHILS % 0.4 % (0.0-7.0); HEMATOCRIT 25.3 % (37.0-47.0); HEMOGLOBIN 8.4 g/dl (12.0-16.0); LYMPHOCYTES # 1.8 10^3/ul (0.8-2.9); LYMPHOCYTES % 19.2 % (15.0-51.0); MEAN CORPUSCULAR HEMOGLOBIN 28.9 pg (29.0-33.0); MEAN CORPUSCULAR HGB CONC 33.3 g/dl (32.0-37.0); MEAN CORPUSCULAR VOLUME 86.8 fl (82.0-101.0); MEAN PLATELET VOLUME 10.2 fl (7.4-10.4); MONOCYTE # 0.8 10^3/ul (0.3-0.9); NEUTROPHIL # 6.8 10^3/ul (1.6-7.5); NEUTROPHILS % 71.8 % (39.0-77.0); PLATELET COUNT 169 10^3/UL (140-440); RED BLOOD COUNT 2.92 10^6/ul (4.20-5.40); RED CELL DISTRIBUTION WIDTH 14.6 % (11.5-14.5); UNCORRECTED WBC 9.5 10^3/ul (4.8-10.8); WHITE BLOOD COUNT 9.5 10^3/ul (4.8-10.8)
[2016-04-15 08:08] LABS: CONDITION 1; LH ANALYZER COMMENTS 1
[2016-04-15] MEDS: SENNA/DOCUSATE NA (8.6MG/50MG) TAB PO SCH ×2 (09:01→20:57)
[2016-04-15] MEDS: metFORMIN (XR) 500 MG TAB PO SCH ×2 (09:01→17:56)
[2016-04-15] MEDS ORDERED: BISACODYL 10 MG SUPP PR ONE (10:00)
--- NOTE | 2016-04-15 17:55 | PN ---
Date/Time of Note Date/Time of Note DATE: 04/15/16 TIME: 17:54 Assessment/Plan VTE Prophylaxis VTE Prophylaxis Intervention: ambulation Lines/Catheters IV Catheter Type (from Nrs): Peripheral IV Assessment/Plan Assessment/Plan POD # 1 S/P C/S will advance diet and ambulate monitor blood glucose Subjective 24 Hr Interval Summary NO BM passing flatus Exam/Review of Systems Vital Signs Vitals Vital Signs Date Time Temp Pulse Resp B/P Pulse Ox O2 Delivery O2 Flow Rate FiO2 04/15/16 15:35 98.6 115 12 115/55 Room Air 04/15/16 15:00 97 21 Intake and Output 04/14/16 04/14/16 04/15/16 15:00 23:00 07:00 Intake Total 800 ml 2500 ml 1000 ml Output Total 2400 ml 250 ml Balance 800 ml 100 ml 750 ml Exam Free Text/Dictation abdomen: soft bs incision : covered Results Result Diagram: 04/15/16 0703 04/14/16 0335 TERESA RAMIREZ MD Apr 15, 2016 17:55
[2016-04-15] MEDS: IBUPROFEN 800 MG TAB PO SCH (21:35)
[2016-04-16 04:00] VITALS: BP 84/54; PULSE 76; RESP 18
[2016-04-16] MEDS: ACETAMINOPHEN/CODEINE #3 TAB PO PRN ×3 (04:04→15:55)
[2016-04-16] MEDS: CLINDAMYCIN 300 MG CAP PO SCH ×3 (05:42→17:54)
[2016-04-16] MEDS: IBUPROFEN 800 MG TAB PO SCH ×3 (05:42→22:48)
[2016-04-16 08:13] LABS: CREATININE 0.4 mg/dl (0.44-1.00)
[2016-04-16 08:15] VITALS: BP 99/71; PULSE 90; RESP 19
[2016-04-16] MEDS: SENNA/DOCUSATE NA (8.6MG/50MG) TAB PO SCH ×2 (08:22→21:06)
[2016-04-16] MEDS: metFORMIN (XR) 500 MG TAB PO SCH ×2 (08:23→17:54)
--- NOTE | 2016-04-16 13:26 | DS ---
Date/Time of Note Date/Time of Note home next day DATE: 04/16/16 TIME: 13:23 Obstetrical Discharge Record Final Diagnosis Final Diagnosis: Term delivered Other Final Diagnosis S/P C/S + BTL Vaginal Delivery Obstetrical Delivery: Bilateral Tubal Ligation Section Section: Repeat Complications Gestational Diabetes Condition on Discharge Physical Assessment Last Vitals: see nurses notes Voiding: Yes Bowel Movement: Yes Breast: Soft, non-tender, Filling Fundus: Firm Abdomen and Incision: soft BS + Incision healing well Episiotomy: NA Calf Tenderness: No Patient Condition: Good TERESA RAMIREZ MD Apr 16, 2016 13:26
--- NOTE | 2016-04-16 13:27 | DS ---
Date/Time of Note Date/Time of Note DATE: 04/16/16 TIME: 13:26 Discharge Summary Admission/Discharge Info Admit Date/Time Apr 14, 2016 at 05:05 Discharge Date/Time 04/17/2016 Final Diagnosis S/P C/S + BTL Patient Condition: Good Procedures repeat C/S + BTL Hx of Present Illness 25 y/o female had repeat C/S + BTL Hospital Course uncomplicated Home Meds Reported Medications Insulin Regular, Human (Humulin R) 100 Unit/1 Ml Vial, 12 UNIT IJ AC BREAKFAST, VIAL 04/14/16 Insulin Human Nph (Novolin-N) 100 Units/Ml Susp, 10 SQ QHS 04/14/16 Insulin NPH Human Isophane (Humulin N) 100 Unit/1 Ml Vial, 10 UNIT SQ AC BREAKFAST, VIAL 04/14/16 Insulin Regular, Human (Humulin R) 100 Unit/1 Ml Vial, 10 UNIT IJ AC DINNER, VIAL 04/14/16 Calcium Carbonate (CALCIUM) 600 Mg Tablet, 600 MG PO DAILY 05/11/13 Ferrous Gluconate (Iron) 256 Mg Tablet, 256 MG PO DAILY 05/11/13 Vit #108/Iron/Fa ( ONE TABLET) 1 Each Tablet, 1 EACH PO DAILY 05/11/13 Follow-up Plan 2 days in clinic for staple removal Pending Labs Laboratory Tests Test 04/15/16 14:58 04/15/16 20:29 04/16/16 07:11 04/16/16 08:13 Bedside Glucose 96mg/dL (70-220) 137mg/dL (70-220) 76mg/dL (70-220) Blood Urea Nitrogen 5mg/dl (7-20) Creatinine 0.40mg/dl (0.44-1.00) Test 04/16/16 08:53 04/16/16 11:25 Bedside Glucose 98mg/dL (70-220) 100mg/dL (70-220) TERESA RAMIREZ MD Apr 16, 2016 13:27
--- NOTE | 2016-04-16 13:30 | PD.PPDC ---
[employer] APPLICATOR Discharge Instruction Provider Information Physician Information 25 y/o female had repeat C/S + BTL Diagnosis Final Diagnosis: S/P C/S Condition Patient Condition: Good Diet Diet: Special Diet Special Diet: 1800 fadumo ADA Activity/Restrictions Activity: August Shower Restrictions: No Exercising No Lifting Nothing in the Vagina Return to Work or School: Jun 20, 2016 Wound/Drain Care Instructions Wound/Drain Care Instructions: Keep clean and dry Follow-up Follow-up with Physician: 2, Day/Days Provider Information: in clinic for staple removal Return to clinic for DESK MANAGER Instructions: Fever greater than 101 Chills Excessive Vaginal Bleeding OB Instructions: Breast Tenderness Depression Surgical Instructions: Incisional Drainage Incisional Redness TERESA RAMIREZ MD Apr 16, 2016 13:29
[2016-04-16] MEDS ORDERED: IBUP800T25 PO (13:32)
[2016-04-16] MEDS ORDERED: PERCOCET PO (13:32)
[2016-04-16 16:00] VITALS: BP 94/59; PULSE 64; RESP 19
[2016-04-16] MEDS ORDERED: INFLUENZA VIRUS VACCINE 0.5 ML SYG IM* ONE (17:00)
[2016-04-16] MEDS: ACCUCHECK XX SCH ×2 (19:35→21:05)
[2016-04-16] MEDS: LACTATED RINGER'S 1,000 ML IV SCH ×2 (19:35→22:03)
[2016-04-16 20:00] VITALS: BP 90/51; PULSE 92; RESP 18
[2016-04-17] MEDS: CLINDAMYCIN 300 MG CAP PO SCH ×2 (00:09→05:54)
[2016-04-17 04:08] VITALS: BP 90/53; PULSE 93; RESP 18
[2016-04-17] MEDS: ACETAMINOPHEN/CODEINE #3 TAB PO PRN (04:08)
[2016-04-17] MEDS: IBUPROFEN 800 MG TAB PO SCH (05:54)
[2016-04-17] MEDS: LACTATED RINGER'S 1,000 ML IV SCH (05:57)
[2016-04-17] MEDS: ACCUCHECK XX SCH ×2 (07:30→10:05)
[2016-04-17 08:00] VITALS: BP 96/48; PULSE 73; RESP 18
[2016-04-17] MEDS: SENNA/DOCUSATE NA (8.6MG/50MG) TAB PO SCH (08:22)
[2016-04-17] MEDS: metFORMIN (XR) 500 MG TAB PO SCH (08:22)
[2016-04-17] MEDS ORDERED: MEASLES,MUMPS,RUBELLA VACCINE INJ SC* ONE (09:00)
[2016-04-17] MEDS ORDERED: DIPHTH/TET/ACEL PERTUSS (ADULT) 0.5 ML VIAL IM* ONE (09:00)
[2016-04-18] MEDS ORDERED: INFLUENZA VIRUS VACCINE 0.5 ML SYG IM* ONE (09:00)
== END 2016-04-17 12:40 | disposition home or self-care (01) | DRG 766 ==
LOC: OBT 02:30 → L-D 02:30 → OBT 05:05 → L-D 05:05 → PP1 22:07
PROVIDERS: ADMIT Obstetrics & Gynecology; ATTEND Obstetrics & Gynecology
PROC: 10D00Z1 Extraction of Products of Conception, Low, Open Approach (ICD-10-PCS; principal; 2016-04-14)
PROC: 0UB70ZZ Excision of Bilateral Fallopian Tubes, Open Approach (ICD-10-PCS; 2016-04-14)
PROC: 10907ZC Drainage of Amniotic Fluid, Therapeutic from Products of Conception, Via Natural or Artificial Opening (ICD-10-PCS; 2016-04-14)
DX: O24.424 Gestational diabetes mellitus in childbirth, insulin controlled (principal); O34.211 Maternal care for low transverse scar from previous cesarean delivery; Z3A.38 38 weeks gestation of pregnancy; Z37.0 Single live birth; Z30.2 Encounter for sterilization
CPT/HCPCS: 36415; 81003; 82565; 82947; 82962; 84520; 85025; 85610; 85730; 86592; 86703; 86850; 86900; 86901; 88302; 90686; 90715; 94760; 96360; 96361; 99464; G0463; J0690; J1170; J1200; J1885; J2274; J2370; J2405; J2590; J3010; J7120